=== PATIENT | female | born 2000 | race Caucasian/White ===

== ENCOUNTER 2024-04-30 17:27 | Inpatient (IN) | payer OTHER, SELFPAY ==
[2024-04-30 18:17] VITALS: BP 128/88; PULSE 92; RESP 18; TEMP 36.7; O2SAT 100; BMI 20.1
--- NOTE | 2024-04-30 18:22 | ED.GENADULT ---
HPI - General Adult General Chief complaint: General Medical Stated complaint: lump under chin Time Seen by Provider: 04/30/24 22:48 Source: patient, family, RN notes reviewed and old records reviewed Mode of arrival: ambulatory Limitations: no limitations History of Present Illness ED Provider: Suly RUBALCAVA narrative: 23-year-old female presents for evaluation of a swollen gland under her chin She 1st noticed his symptoms about 3 days ago. She denies any respiratory symptoms including fevers, chills, cough, runny nose. She denies any sore throat or painful swallowing. She has no known history of thyroid issues but does have anxiety and is concerned about her thyroid She reports very mild discomfort to the area stating ?I can feel it is enlarged but it does not hurt. ? Related Data Allergies Allergy/AdvReac Type Severity Reaction Status Date / Time No Known Allergies Allergy Verified 04/30/24 18:20 Review of Systems Constitutional: Constitutional: Reports chills, Denies fever(s) and Reports malaise Eyes: Eyes: Denies blurry vision ENT: Denies sore throat Cardiovascular: Cardiovascular: Denies chest pain and Denies dyspnea Respiratory: Respiratory: Denies cough and Denies dyspnea Gastrointestinal: Gastrointestinal: Denies abdominal pain, Denies nausea and Denies vomiting Musculoskeletal: Musculoskeletal: Denies back pain Hematologic/Lymphatic: Hematologic/Lymphatic: Reports lymphadenopathy PMFSH Social History Social History Smoked in Last 30 Days: Yes Use of substances other than those prescribed or required for medical reasons: No Advance Directives: No Advance Directives Information Provided: Yes Patient : No Physical Exam ED Vital Signs: Vital Signs - 24 hr 04/30/24 18:17 05/01/24 00:07 Temperature 98.0 F 98.7 F Pulse Rate 92 107 H Respiratory Rate 18 18 Blood Pressure 128/88 126/82 Pulse Oximetry 100 99 Oxygen Delivery Method Room Air Room Air BMI result Body Mass Index 20.1 Const General: healthy appearing, comfortable, no acute distress, alert and awake Nutritional Appearance: well nourished Orientation/consciousness: patient oriented x3 HENMT Head: Yes normocephalic and Yes atraumatic Eyes Eyelids: Yes eyelids normal Conjunctivae: conjunctivae normal Sclerae: sclerae normal Corneas: corneas normal Pupils: Equal, round and reactive pupils present EOM: EOMs intact bilaterally Neck Other: Positive right-sided submandibular lymphadenopathy Neck: Yes full ROM, No no lymphadenopathy and Yes no meningeal signs Thyroid: Thyroid normal Resp Effort & Inspection: normal respiratory effort, able to speak in complete sentences, no audible wheezes and not labored Auscultation: clear to auscultation bilaterally Cardio Rate: regular rate Rhythm: regular rhythm Skin General skin exam: elasticity normal Neuro General: patient oriented x3 and no meningeal signs Cranial nerves: Yes Equal, round and reactive pupils present and Yes Bilaterally intact EOM present Cognition (Neuro): normal cognition Extrem Other: Moving all extremities well without any obvious deformities Course Course Course Narrative: RME: 22-year-old female presents to ED for tender small lump on right side of neck. Patient has very small right cervical lymphadenopathy. Oral exam positive for bilateral exudates. Patient well-appearing. SARs strep mono ordered. Reevaluation(s) Reevaluation #1: I was side blood by the patient's father who reports that the patient is interested in having a ?psych eval. I asked the patient why she feels as if she needs a psychiatric evaluation. She reports ?I do not feel like I am in touch with reality, nothing feels real. She endorses depression with SI but no plan for SI. She reports a previous inpatient psychiatric admission about 2 years ago. The patient is medically cleared for care team evaluation at this time. Time: 00:10 Medications Administered Discontinued Medications Generic Name Dose Route Start Last Admin Trade Name Freq PRN Reason Stop Dose Admin Nicotine 21 mg 05/01/24 00:40 05/01/24 00:44 Nicotine 21 Mg Patch.Td24 TRANSDERMA 05/01/24 00:41 21 mg ONCE ONE Administration Medical Decision Making Medical Decision Making [facility] Narrative: 23-year-old female presents for evaluation of a swollen glands. She denies any sore throat. She endorses chills but no fevers. Denies any cough, respiratory symptoms. Her labs are unremarkable, she is negative for influenza, COVID-19, RSV, strep pharyngitis, mononucleosis. Plan to add a thyroid testing as the patient is very concerned about her thyroid. She has no anterior neck edema outside of the palpable swollen gland that is nonmobile. This is nonspecific, possibly viral in origin Differential Diagnosis Differential Diagnoses: The differential diagnosis associated with the presentation includes Pharyngitis Viral syndrome Lymphadenopathy Upper respiratory infection Mononucleosis Strep pharyngitis Admission/Observation Consideration of admission/observation: Escalation of care including admission/observation considered Lab Data MDM Lab Attestation statement: I reviewed the patient's lab results. No leukocytosis or anemia. Normal platelet count. No electrolyte abnormality 04/30/24 19:14 04/30/24 19:14 Labs: Lab Results 04/30/24 05/01/24 Range/Units 19:14 06:44 WBC 8.5 (4.8-10.8) X10*3/uL RBC 5.09 (4.20-5.50) X10*6/uL Hgb 15.7 (12.0-16.0) g/dl Hct 43.5 (37.0-47.0) % MCV 85.5 (80.0-98.0) fL MCH 30.8 (27.0-33.0) pg MCHC 36.1 H (31.0-35.0) g/dl RDW 12.2 (11.0-16.0) % Plt Count 264 (160-400) X10*3/uL MPV 9.1 L (9.4-12.3) fL Immature Gran % (Auto) 0.2 (0.0-0.4) % Neut % (Auto) 53.6 (45-73) % Lymph % (Auto) 28.0 (20-40) % [place] % (Auto) 11.1 H (2-11) % Eos % (Auto) 6.5 H (0-4) % Baso % (Auto) 0.6 (0-2) % Lymph # (Auto) 2.4 (1.2-4.9) X10*3/uL [place] # (Auto) 0.9 (0.1-1.2) X10*3/uL Eos # (Auto) 0.6 H (0.0-0.4) X10*3/uL Baso # (Auto) 0.1 (0.0-0.2) X10*3/uL Abs Immat Gran (auto) 0.02 (0.00-0.03) X10*3/uL Absolute Neuts (auto) 4.6 (2.0-8.3) x10*3/uL Absolute Nucleated RBC 0.000 (0.0-0.012) X10*3/uL Nucleated RBC % (auto) 0.0 (0.0-0.2) /100WBC Sodium 141 (135-145) mmol/L Potassium 3.9 (3.3-5.1) mmol/L Chloride 108 (96-108) mmol/L Carbon Dioxide 22 (22-29) mmol/L Anion Gap 15 (12-20) BUN 15 (9-16) mg/dL Creatinine 0.74 (0.5-1.4) mg/dL Estim Creat Clear Calc 108.8 Estimated GFR > 60 Random Glucose 86 (60-115) mg/dL Calcium 9.7 (8.4-10.2) mg/dL Total Bilirubin 1.7 H (0.0-1.0) mg/dL AST 20 (5-31) U/L ALT 16 (0-31) U/L Alkaline Phosphatase 40 (39-117) U/L Total Protein 7.7 (6.5-8.0) g/dL Albumin 4.7 (3.5-5.0) g/dL TSH 5.20 H (0.32-4.0) uIU/mL Free T4 1.11 (0.71-1.85) ng/dL Beta HCG, Quant < 2 mIU/mL Salicylates < 5.0 L (15-30) mg/dL Urine Opiates Screen Not Detected (Not Detect) Ur Buprenorphine Scrn Not Detected (Not Detect) ng/mL Ur Oxycodone Screen Not Detected (Not Detect) ng/mL Urine Methadone Screen Not Detected (Not Detect) ng/mL Urine Fentanyl Screen Not Detected (Not Detect) Ur Barbiturates Screen Not Detected (Not Detect) Ur Phencyclidine Scrn Not Detected (Not Detect) Ur Amphetamines Screen Not Detected (Not Detect) U Benzodiazepines Scrn Not Detected (Not Detect) Urine Cocaine Screen Not Detected (Not Detect) U Marijuana (THC) Screen POSITIVE H (Not Detect) Ethyl Alcohol < 10 mg/dL Monoscreen Negative (Negative) Influenza Type A (PCR) NEGATIVE (Negative) Influenza Type B (PCR) NEGATIVE (Negative) RSV RNA Qual (PCR) NEGATIVE (Negative) SARS-CoV-2 RNA (RT-PCR) NEGATIVE (Negative) S. pyogenes GrpA [place] Negative (Negative) Discharge Plan Discharge Clinical Impression: Lymphadenopathy, submandibular, Depression with suicidal ideation Patient Disposition: Still a Patient Instructions: Lymphadenopathy (ED), Suicide Prevention (ED) Print Language: Upper Sorbian
[2024-04-30 19:20] LABS: MANUAL DIFF FLAG NO
[2024-04-30 19:22] LABS: Basophils Absolute Auto 0.1 X10*3/uL (0.0-0.2); Basophils Percent Auto 0.6 % (0-2); Eosinophils Absolute Auto 0.6 X10*3/uL (0.0-0.4); Eosinophils Percent Auto 6.5 % (0-4); Hematocrit 43.5 % (37.0-47.0); Hemoglobin 15.7 g/dl (12.0-16.0); Imm Gran Abs Auto 0.02 X10*3/uL (0.00-0.03); Imm Gran Pct Auto 0.2 % (0.0-0.4); Lymphocytes Absolute Auto 2.4 X10*3/uL (1.2-4.9); Mean Corpuscular HGB Conc 36.1 g/dl (31.0-35.0); Mean Corpuscular Hemoglobin 30.8 pg (27.0-33.0); Mean Corpuscular Volume 85.5 fL (80.0-98.0); Mean Platelet Volume 9.1 fL (9.4-12.3); Monocytes Absolute Auto 0.9 X10*3/uL (0.1-1.2); Monocytes Percent Auto 11.1 % (2-11); Neutrophils Absolute Auto 4.6 x10*3/uL (2.0-8.3); Neutrophils Percent Auto 53.6 % (45-73); Platelet Count 264 X10*3/uL (160-400); Red Blood Count 5.09 X10*6/uL (4.20-5.50); Red Cell Distribution Width 12.2 % (11.0-16.0); White Blood Count 8.5 X10*3/uL (4.8-10.8)
[2024-04-30 19:27] LABS: IDNOW Serial# 58CA691E; Strep A Nucleic Acid Negative (Negative)
[2024-04-30 19:35] LABS: Monotest Negative (Negative)
[2024-04-30 19:42] LABS: Alanine Aminotransferase 16 U/L (0-31); Albumin Level 4.7 g/dL (3.5-5.0); Alkaline Phosphatase 40 U/L (39-117); Anion Gap 15 (12-20); Aspartate Amino Transferase 20 U/L (5-31); Bilirubin Total 1.7 mg/dL (0.0-1.0); Blood Urea Nitrogen 15 mg/dL (9-16); Calcium 9.7 mg/dL (8.4-10.2); Carbon Dioxide 22 mmol/L (22-29); Chloride 108 mmol/L (96-108); Creatinine Clr Calc Pharmacy 108.8; Estimated Glomerular Filt Rate > 60; Glucose Random 86 mg/dL (60-115); Potassium 3.9 mmol/L (3.3-5.1); Sodium 141 mmol/L (135-145); Total Protein 7.7 g/dL (6.5-8.0)
[2024-04-30 19:44] LABS: HCG Quantitative < 2 mIU/mL
[2024-04-30 19:56] LABS: Influenza A PCR NEGATIVE (Negative); Influenza B PCR NEGATIVE (Negative); Resp Syncy Virus RNA Qual PCR NEGATIVE (Negative); SARS COV2 PCR INHOUSE NEGATIVE (Negative)
[2024-05-01 00:07] VITALS: BP 126/82; PULSE 107; RESP 18; TEMP 37.1; O2SAT 99
[2024-05-01 00:31] LABS: Ethanol < 10 mg/dL
[2024-05-01 00:42] LABS: Salicylate < 5.0 mg/dL (15-30)
[2024-05-01] MEDS: Nicotine 21 MG PATCH.TD24 TRANSDERMA (00:44)
[2024-05-01 00:51] LABS: Free T4 (Free Thyroxine) 1.11 ng/dL (0.71-1.85)
[2024-05-01 07:04] LABS: Amphetamine Screen Urine Not Detected (Not Detect); Barbiturates, Urine Not Detected (Not Detect); Benzodiazepines Screen Urine Not Detected (Not Detect); Buprenorphine Scr Not Detected (Not Detect); Cannabinoid Screen Urine POSITIVE (Not Detect); Cocaine Screen Urine Not Detected (Not Detect); Fentanyl, urine Not Detected (Not Detect); Methadone Screen, Urine Not Detected (Not Detect); Opiate Screen Urine Not Detected (Not Detect); Oxycodone Screen Urine Not Detected (Not Detect); Phencyclidine Screen Urine Not Detected (Not Detect)
--- NOTE | 2024-05-01 08:02 | PC.NURSE ---
Assumed care of patient at 0645, patient appears to be in no apparent distress this am, calm and cooperative, offering no complaints to this RN. Continue plan of care for CARE team eval this am
--- NOTE | 2024-05-01 11:39 | MHC.CARE ---
Pt meets the criteria for IPLOC secondary to SI with a plan to shoot herself. She has no intent and does not have access to firearms. Provider in agreement. Pt on Section 12a.
[2024-05-01 14:00] VITALS: BP 108/77; PULSE 89; RESP 16; TEMP 37.2; O2SAT 99
--- NOTE | 2024-05-01 15:54 | PHA.MEDREC ---
Addendum entered by Elida Killian RPh 05/01/24 15:58: reviewed by [facility]. Original Note: Pharmacy Consult ? Medication Reconciliation Pharmacy has completed the medication reconciliation. Spoke with patients nurse in pod to see if she is taking anything since looking in claims the patient has not filled anything since 01/03 for 90 days. The patients nurse states she spoke to the patient and she confirmed She said she hasn't taken any medications 'in quite a long time' .
--- NOTE | 2024-05-01 18:42 | PC.NURSE ---
Patient appears to be sleeping, respirations even and unlabored, no apparent distress noted
[2024-05-01 21:51] VITALS: BP 116/85; PULSE 110; RESP 20; TEMP 36.4; O2SAT 97
[2024-05-02 05:34] VITALS: BP 137/92; PULSE 93; RESP 16; TEMP 36.8; O2SAT 100
--- NOTE | 2024-05-02 06:46 | PC.NURSE ---
Patient slept through the night, no distress observed/reported, 15 minutes safety check, no behavior and safety concerns, currently not on any medication at this time, disposition per care team is section 12 inpatient bed search, VSS, will continue to monitor
--- NOTE | 2024-05-02 07:14 | PC.NURSE ---
Assumed care of patient at 0645, patient appears to be in no apparent distress this am, calm and cooperative, up in bed eating breakfast at this time. Continue plan of care for inpatient bedsearch
[2024-05-02 19:08] VITALS: BP 136/89; PULSE 107; RESP 16; TEMP 36.4; O2SAT 98
[2024-05-02 19:09] VITALS: BMI 20.5
--- NOTE | 2024-05-02 19:24 | PC.NURSE ---
Pt transferred from [facility] Pod to M3 at 1847 on a CV for treatment of depression. Skin check complete with AMIRA Malone Skin intact. Vitals: 136/89 107 97.5 98%.
[2024-05-02 20:00] LABS: Alanine Aminotransferase 14 U/L (0-31); Albumin Level 4.2 g/dL (3.5-5.0); Alkaline Phosphatase 43 U/L (39-117); Anion Gap 10 (12-20); Aspartate Amino Transferase 17 U/L (5-31); Blood Urea Nitrogen 15 mg/dL (9-16); Calcium 9.2 mg/dL (8.4-10.2); Carbon Dioxide 27 mmol/L (22-29); Chloride 107 mmol/L (96-108); Creatinine Clr Calc Pharmacy 102.4; Estimated Glomerular Filt Rate > 60; Glucose Random 91 mg/dL (60-115); Potassium 3.8 mmol/L (3.3-5.1); Sodium 140 mmol/L (135-145); Total Protein 6.9 g/dL (6.5-8.0)
--- NOTE | 2024-05-02 23:45 | PC.ADMIT ---
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 ОЛЬГА WAS COOPERATIVE/ WITH LINEAR THOUGHTS AND ORGANIZED DURING ADMISSION PROCESS, [facility] CONTACT EXPRESSING DEPRESSION SHE BECAME TEARFUL RECOUNTING CURRENT LIFE STRESSOR WHICH SHE DID NOT DISCLOSE, POSITIVE THOUGHTS OF SI, WHICH IS INCREASED AT HOME, STATES THOUGHTS ARE DIMINISHED HERE, NO PLAN, AND IS COMFORTABLE WITH CONTACTING STAFF IF THOUGHTS CHANGE. DENIES AVH. HER DISCHARGE GOAL: GET ON MEDS THAT HELP, CONNECT WITH OPLOC PROVIDERS AND FEEL BETTER. ОЛЬГА WAS GIVEN TOUR OF UNIT, OFFERED NOURISHMENT, NO SCHEDULED HS MEDS AND SHE DECLINED PRN'. NO FALL HX, GAIT STEADY. LEGAL STATUS CV, PLACED ON 15 MIN UNIT SAFETY OBSERVATION.
[2024-05-03 08:00] VITALS: BP 137/82; PULSE 79; RESP 16; TEMP 37; O2SAT 99
[2024-05-03] MEDS: Nicotine 21 MG PATCH.TD24 TRANSDERMA (08:50)
[2024-05-03] MEDS: Flu Vacc TS2024-25(6mos up)/PF 0.5 ML SYRINGE IM (09:03)
--- NOTE | 2024-05-03 09:16 | HO.PSYADMNOT ---
HPI Date of Service: 05/03/24 Chief Complaint: crisis Sources of Information: patient interviewed, chart reviewed and crisis/core team assessment reviewed HPI Subjective Notes: Wilson Warning and Conditional Voluntary Narrative: Patient is a 23-year-old female with history of bipolar d/o and PTSD who self presented to ED requesting psychiatric evaluation due to suicidal ideation secondary to increased depression. Per crisis report, patient feels like she is not in touch with reality. She endorsed SI with increased depression with plan to shoot herself (does not have access to firearms); patient stated, fantasized about suicide all the everyday . denies HI/VH/AH. Patient reports she has never been medicated properly. Patient reports she was on inpatient psychiatric unit 2 years ago at [facility]. Reports poor sleep. Patient does have outpatient therapist but does not have prescriber and reports she has not taken medications in many years. Utox positive for cannabis. During admission assessment, patient presents alert and oriented x3. Calm and cooperative. Patient reports feeling depressed; patient stated, I have been unmedicated my whole life. I need help being a normal person. I was diagnosed with bipolar disorder. I'm crying all the time and angry all the time. I think about suicide since I was a kid but, I was worried if I told anyone that they would lock me up forever. I'm not a danger to myself; it's a constant racing thought. I would not actually do it . denies HI/VH/AH. denies hx of SA/SIB. She reports poor sleep and nightmares. Discussed starting on lithium and prazosin;risks/benefits reviewed; pt agreed to trial. Medical Evaluation Reviewed: Yes [facility] Family History: Mother: bipolar d/o Social History: Lives with adopted parents, 2 siblings (17 & 25 y/o), single. No kids. Unemployed. High school graduate. Substance History: Patient reports smoking marijuana daily. Denies any other substance use. Trauma History: yes Diagnostics Vital Signs (24Hr): Vital Signs - 24 hr 05/02/24 19:08 05/03/24 08:00 Temperature 97.5 F 98.6 F Pulse Rate 107 H 79 Respiratory Rate 16 16 Blood Pressure 136/89 137/82 Pulse Oximetry 98 99 Oxygen Delivery Method Room Air Room Air BMI result Body Mass Index 20.5 Labs 04/30/24 19:14 05/02/24 19:38 Labs: Laboratory Results - last 48 hr 05/02/24 19:38 Sodium 140 Potassium 3.8 Chloride 107 Carbon Dioxide 27 Anion Gap 10 L BUN 15 Creatinine 0.80 Estim Creat Clear Calc 102.4 Estimated GFR > 60 Random Glucose 91 Calcium 9.2 Total Bilirubin 1.0 AST 17 ALT 14 Alkaline Phosphatase 43 Total Protein 6.9 Albumin 4.2 Meds/Allergies Meds Home Medications ?Medication ?Instructions ?Recorded ?Confirmed ?Type No Known Home Meds 05/01/24 05/01/24 History Allergies Allergies Allergy/AdvReac Type Severity Reaction Status Date / Time No Known Allergies Allergy Verified 04/30/24 18:20 Mental Status Exam Mental Status Exam Narrative: Pt is alert and oriented; behavior is cooperative; dressed in casual attire; mood is described as depressed ; eye contact appropriate; Speech is normal rate, volume and not pressured; thought process is organized and goal directed; Thought content is on tx; otherwise pertinent to relevant topics and without any delusional content, paranoid ideations or grandiosity; denies HI/VH/AH. Pt reports suicidal ideation with no plan. Assessment & Plan Assessment & Plan (1) Bipolar 1 disorder, depressed: Status: Acute Code(s): F31.9 - Bipolar disorder, unspecified (2) PTSD (post-traumatic stress disorder): Status: Acute Code(s): F43.10 - Post-traumatic stress disorder, unspecified Plan Patient is a 23-year-old female with history of bipolar d/o and PTSD who self presented to ED requesting psychiatric evaluation due to suicidal ideation secondary to increased depression. Plan: CV 15 minute safety checks obtain collateral Start: [facility] [place] [facility] 300mg PO bedtime Prazosin 1mg PO bedtime encourage groups referral to outpatient psychiatric prescriber referral to [facility] discharge planning Patient educated on: diagnosis and medication risk/benefits Reason for continued inpatient stay Substantial Risk for: harm to self and med/psych decompensation Statement Statement: I have reviewed the history and physical and performed a pertinent examination on my patient. No changes have occurred unless specified. If the History and Physical was not performed prior to admission, the Hospitalist's service will be consulted for completing the admission physical. Time Spent With Patient Time: Total time managing care of this patient today _60___ minutes.
[2024-05-03 20:00] VITALS: BP 120/86; PULSE 95; RESP 16; TEMP 37.2; O2SAT 99
[2024-05-03] MEDS: traZODone HCL 50 MG TABLET PO (20:38)
[2024-05-03] MEDS: Lithium Carbonate ER 300 MG TABLET.ER PO (20:38)
[2024-05-03] MEDS: Prazosin HCL 1 MG CAPSULE PO (20:38)
[2024-05-04 07:00] VITALS: BMI 21.1
[2024-05-04 08:00] VITALS: BP 125/83; PULSE 83; RESP 16; TEMP 36.7; O2SAT 99
[2024-05-04 08:31] LABS: Cholesterol 128 mg/dL (<200); HDL Cholesterol 54 mg/dL (>40); LDL Cholesterol Calculated 56 mg/dL (<100); Triglycerides 93 mg/dL (<150)
[2024-05-04] MEDS: Nicotine 21 MG PATCH.TD24 TRANSDERMA (09:11)
[2024-05-04] MEDS: Milk of Magnesia 30 ML ORAL.SUSP PO (09:14)
--- NOTE | 2024-05-04 09:49 | HO.PSYCHPN ---
Subjective Subjective Date of Service: 05/04/24 Reason For Visit: crisis Subjective Notes: Conditional Voluntary Interim History: Active on unit, social with peers. attending groups. Patient reports she feels her anxiety and depression are a little better ; pt stated, I think I feel a little better because I know I'm getting the help I need. I haven't had thoughts of suicide since I'm getting treatment but I know if I was to go back to where I was then I would . Patient reports feeling labile throughout the day. denies any side effects from starting lithium. Reports she did not have nightmares last night after taking Prazosin. Continue current tx plan. Medication Compliance: Yes Side effects from medications: No Attending Groups: Yes Review of Systems Constitutional: Reports as per HPI Eyes: Reports as per HPI Reports as per HPI Cardiovascular: Reports as per HPI Respiratory: Reports as per HPI Gastrointestinal: Reports as per HPI Musculoskeletal: Reports as per HPI Skin/Breast: Reports as per HPI Reports as per HPI Psychiatric: Reports as per HPI Endocrine: Reports as per HPI Hematologic/Lymphatic: Reports as per HPI Allergic/Immunologic: Reports as per HPI Mental Status Exam Mental Status Exam Narrative: Pt is alert and oriented; behavior is cooperative; dressed in casual attire; mood is described as depressed ; eye contact appropriate; Speech is normal rate, volume and not pressured; thought process is organized and goal directed; Thought content is on tx; otherwise pertinent to relevant topics and without any delusional content, paranoid ideations or grandiosity; denies HI/VH/AH. Pt reports suicidal ideation with no plan. Diagnostics Vital Signs (24Hr): Vital Signs - 24 hr 05/03/24 20:00 05/04/24 08:00 Temperature 98.9 F 98.1 F Pulse Rate 95 83 Respiratory Rate 16 16 Blood Pressure 120/86 125/83 Pulse Oximetry 99 99 Oxygen Delivery Method Room Air Room Air BMI result Body Mass Index 20.5 Labs 04/30/24 19:14 05/02/24 19:38 Labs: Laboratory Results - last 48 hr 05/02/24 05/04/24 19:38 07:51 Sodium 140 Potassium 3.8 Chloride 107 Carbon Dioxide 27 Anion Gap 10 L BUN 15 Creatinine 0.80 Estim Creat Clear Calc 102.4 Estimated GFR > 60 Random Glucose 91 Calcium 9.2 Total Bilirubin 1.0 AST 17 ALT 14 Alkaline Phosphatase 43 Total Protein 6.9 Albumin 4.2 Triglycerides 93 Cholesterol 128 LDL Cholesterol, Calc 56 HDL Cholesterol 54 Medications Medications Current Medications Acetaminophen (Acetaminophen 325 Mg Tablet) 650 mg PO Q6H PRN PRN Reason: Headache/Pain Mild Scale (1-3) Al Hydroxide/Mg Hydroxide (Magnesium Hydrox/Alum Hydrox 30 Ml Oral.Susp) 30 ml PO Q6H PRN PRN Reason: Heartburn/Nausea Hydroxyzine HCl (Hydroxyzine Hcl 25 Mg Tablet) 25 mg PO Q6H PRN PRN Reason: Anxiety Ibuprofen (Ibuprofen 400 Mg Tablet) 400 mg PO TID PRN PRN Reason: Pain, Moderate(Pain Scale 4-6) [place] Carbonate ([place] Carbonate Er 300 Mg Tablet.Er) 300 mg PO BEDTIME KARISHMA Last Admin: 05/03/24 20:38 Dose: 300 mg Magnesium Hydroxide (Milk Of Magnesia 30 Ml Oral.Susp) 30 ml PO DAILY PRN PRN Reason: Constipation Last Admin: 05/04/24 09:14 Dose: 30 ml Nicotine (Nicotine 21 Mg Patch.Td24) 21 mg TRANSDERMA DAILY KARISHMA Last Admin: 05/04/24 09:11 Dose: 21 mg Nicotine Polacrilex (Nicotine Polacrilex 2 Mg Gum) 4 mg BUCCAL Q2H PRN PRN Reason: Nicotine Cravings Olanzapine (Olanzapine 5 Mg Tablet) 5 mg PO Q4H PRN PRN Reason: agitation Prazosin HCl (Prazosin Hcl 1 Mg Capsule) 1 mg PO BEDTIME KARISHMA; Protocol Last Admin: 05/03/24 20:38 Dose: 1 mg Trazodone HCl (Trazodone Hcl 50 Mg Tablet) 50 mg PO BEDTIME MRX1 PRN PRN Reason: Insomnia Last Admin: 05/03/24 20:38 Dose: 50 mg Allergies Allergies Allergy/AdvReac Type Severity Reaction Status Date / Time No Known Allergies Allergy Verified 04/30/24 18:20 Assessment & Plan Assessment & Plan (1) Bipolar 1 disorder, depressed: Status: Acute Code(s): F31.9 - Bipolar disorder, unspecified (2) PTSD (post-traumatic stress disorder): Status: Acute Code(s): F43.10 - Post-traumatic stress disorder, unspecified Plan Patient is a 23-year-old female with history of bipolar d/o and PTSD who self presented to ED requesting psychiatric evaluation due to suicidal ideation secondary to increased depression. Plan: CV 15 minute safety checks obtain collateral Start: [place] [facility] 300mg PO bedtime Prazosin 1mg PO bedtime encourage groups referral to outpatient psychiatric prescriber referral to [facility] discharge planning 05/04: Active on unit, social with peers. attending groups. Patient reports she feels her anxiety and depression are a little better ; pt stated, I think I feel a little better because I know I'm getting the help I need. I haven't had thoughts of suicide since I'm getting treatment but I know if I was to go back to where I was then I would . Patient reports feeling labile throughout the day. denies any side effects from starting lithium. Reports she did not have nightmares last night after taking Prazosin. Continue current tx plan. Patient educated on: diagnosis, medication risk/benefits and therapeutic strategies Reason for continued inpatient stay Substantial Risk for: harm to self and med/psych decompensation Time Spent With Patient Time: Total time managing care of this patient today _20___ minutes.
[2024-05-04 20:00] VITALS: BP 125/79; PULSE 93; RESP 16; TEMP 36.9; O2SAT 99
[2024-05-04] MEDS: Prazosin HCL 1 MG CAPSULE PO (20:16)
[2024-05-04] MEDS: traZODone HCL 50 MG TABLET PO (20:16)
[2024-05-04] MEDS: Lithium Carbonate ER 300 MG TABLET.ER PO (20:16)
[2024-05-05 09:14] VITALS: BP 143/86; PULSE 102; RESP 16; TEMP 37.2; O2SAT 98
--- NOTE | 2024-05-05 09:16 | P.PNPSI_ITS ---
Subjective Subjective Date of Service: 05/05/24 Reason For Visit: crisis Subjective Notes: Conditional Voluntary Interim History: Tearful during 1:1. Patient reports feeling anxious and depression today; pt stated, I would like to go to college and get a job but when I think about it I get overwhelmed. I can't afford going to college . attending groups. increase lithium to 300mg PO BID Medication Compliance: Yes Side effects from medications: No Attending Groups: Yes Review of Systems Constitutional: Reports as per HPI Eyes: Reports as per HPI Reports as per HPI Cardiovascular: Reports as per HPI Respiratory: Reports as per HPI Gastrointestinal: Reports as per HPI Musculoskeletal: Reports as per HPI Skin/Breast: Reports as per HPI Reports as per HPI Psychiatric: Reports as per HPI Endocrine: Reports as per HPI Hematologic/Lymphatic: Reports as per HPI Allergic/Immunologic: Reports as per HPI Mental Status Exam Mental Status Exam Narrative: Pt is alert and oriented; behavior is cooperative, tearful; dressed in casual attire; mood is described as depressed ; eye contact appropriate; Speech is normal rate, volume and not pressured; thought process is organized and goal directed; Thought content is on tx; otherwise pertinent to relevant topics and without any delusional content, paranoid ideations or grandiosity; denies SI/HI/VH/AH. Diagnostics Vital Signs (24Hr): Vital Signs - 24 hr 05/04/24 20:00 05/05/24 09:14 Temperature 98.4 F 98.9 F Pulse Rate 93 102 H Respiratory Rate 16 16 Blood Pressure 125/79 143/86 H Pulse Oximetry 99 98 Oxygen Delivery Method Room Air Room Air BMI result Body Mass Index 21.1 Labs 04/30/24 19:14 05/02/24 19:38 Labs: Laboratory Results - last 48 hr 05/04/24 07:51 Triglycerides 93 Cholesterol 128 LDL Cholesterol, Calc 56 HDL Cholesterol 54 Medications Medications Current Medications Acetaminophen (Acetaminophen 325 Mg Tablet) 650 mg PO Q6H PRN PRN Reason: Headache/Pain Mild Scale (1-3) Al Hydroxide/Mg Hydroxide (Magnesium Hydrox/Alum Hydrox 30 Ml Oral.Susp) 30 ml PO Q6H PRN PRN Reason: Heartburn/Nausea Hydroxyzine HCl (Hydroxyzine Hcl 25 Mg Tablet) 25 mg PO Q6H PRN PRN Reason: Anxiety Ibuprofen (Ibuprofen 400 Mg Tablet) 400 mg PO TID PRN PRN Reason: Pain, Moderate(Pain Scale 4-6) [place] Carbonate ([place] Carbonate Er 300 Mg Tablet.Er) 300 mg PO BEDTIME [facility] Last Admin: 05/04/24 20:16 Dose: 300 mg Magnesium Hydroxide (Milk Of Magnesia 30 Ml Oral.Susp) 30 ml PO DAILY PRN PRN Reason: Constipation Last Admin: 05/04/24 09:14 Dose: 30 ml Nicotine (Nicotine 21 Mg Patch.Td24) 21 mg TRANSDERMA DAILY [facility] Last Admin: 05/05/24 09:16 Dose: Not Given Nicotine Polacrilex (Nicotine Polacrilex 2 Mg Gum) 4 mg BUCCAL Q2H PRN PRN Reason: Nicotine Cravings Olanzapine (Olanzapine 5 Mg Tablet) 5 mg PO Q4H PRN PRN Reason: agitation Prazosin HCl (Prazosin Hcl 1 Mg Capsule) 1 mg PO BEDTIME [facility]; Protocol Last Admin: 05/04/24 20:16 Dose: 1 mg Trazodone HCl (Trazodone Hcl 50 Mg Tablet) 50 mg PO BEDTIME MRX1 PRN PRN Reason: Insomnia Last Admin: 05/04/24 20:16 Dose: 50 mg Allergies Allergies Allergy/AdvReac Type Severity Reaction Status Date / Time No Known Allergies Allergy Verified 04/30/24 18:20 Assessment & Plan Assessment & Plan (1) Bipolar 1 disorder, depressed: Status: Acute Code(s): F31.9 - Bipolar disorder, unspecified (2) PTSD (post-traumatic stress disorder): Status: Acute Code(s): F43.10 - Post-traumatic stress disorder, unspecified Plan Patient is a 23-year-old female with history of bipolar d/o and PTSD who self presented to ED requesting psychiatric evaluation due to suicidal ideation secondary to increased depression. Plan: CV 15 minute safety checks obtain collateral Start: [place] ER 300mg PO bedtime Prazosin 1mg PO bedtime encourage groups referral to outpatient psychiatric prescriber referral to [facility] discharge planning 05/04: Active on unit, social with peers. attending groups. Patient reports she feels her anxiety and depression are a little better ; pt stated, I think I feel a little better because I know I'm getting the help I need. I haven't had thoughts of suicide since I'm getting treatment but I know if I was to go back to where I was then I would . Patient reports feeling labile throughout the day. denies any side effects from starting lithium. Reports she did not have nightmares last night after taking Prazosin. Continue current tx plan. 05/05: Tearful during 1:1. Patient reports feeling anxious and depression today; pt stated, I would like to go to college and get a job but when I think about it I get overwhelmed. I can't afford going to college . attending groups. increase lithium to 300mg PO BID Patient educated on: diagnosis, medication risk/benefits and therapeutic strategies Reason for continued inpatient stay Substantial Risk for: med/psych decompensation Time Spent With Patient Time: Total time managing care of this patient today _20___ minutes.
[2024-05-05] MEDS: Lithium Carbonate ER 300 MG TABLET.ER PO ×2 (14:32→22:08)
[2024-05-05 20:00] VITALS: BP 121/84; PULSE 75; RESP 16; TEMP 36.9; O2SAT 99
[2024-05-05] MEDS: traZODone HCL 50 MG TABLET PO (22:08)
[2024-05-05] MEDS: Prazosin HCL 1 MG CAPSULE PO (22:09)
[2024-05-06] MEDS: Lithium Carbonate ER 300 MG TABLET.ER PO ×2 (08:52→22:35)
--- NOTE | 2024-05-06 16:08 | P.PNPSI_ITS ---
Subjective Subjective Date of Service: 05/06/24 Reason For Visit: crisis Subjective Notes: Conditional Voluntary Interim History: Pt reports she is less depressed in that she is not suicidal. She is concern that few doses of lithium have not resolved depression and anxiety- pt educated on time it takes to see therapeutic benefit. She denies SI/HI. She has been mostly in her room, but does come out and socializes with peers. She does appear very anxious and shy. No behavioral concerns. No overt psychosis or delusions. Review of Systems Constitutional: Reports as per HPI, Reports chills, Denies fever(s) and Reports malaise Eyes: Reports as per HPI and Denies blurry vision Reports as per HPI and Denies sore throat Cardiovascular: Reports as per HPI, Denies chest pain and Denies dyspnea Respiratory: Reports as per HPI, Denies cough and Denies dyspnea Gastrointestinal: Reports as per HPI, Denies abdominal pain, Denies nausea and Denies vomiting Musculoskeletal: Reports as per HPI and Denies back pain Skin/Breast: Reports as per HPI Reports as per HPI Psychiatric: Reports as per HPI Endocrine: Reports as per HPI Hematologic/Lymphatic: Reports as per HPI and Reports lymphadenopathy Allergic/Immunologic: Reports as per HPI Mental Status Exam Mental Status Exam Narrative: Pt is alert and oriented; behavior is cooperative, tearful; dressed in casual attire; mood is described as depressed ; eye contact appropriate; Speech is normal rate, volume and not pressured; thought process is organized and goal directed; Thought content is on tx; otherwise pertinent to relevant topics and without any delusional content, paranoid ideations or grandiosity; denies SI/HI/VH/AH. Diagnostics Vital Signs (24Hr): Vital Signs - 24 hr 05/05/24 20:00 Temperature 98.4 F Pulse Rate 75 Respiratory Rate 16 Blood Pressure 121/84 Pulse Oximetry 99 Oxygen Delivery Method Room Air BMI result Body Mass Index 21.1 Labs 04/30/24 19:14 05/02/24 19:38 Medications Medications Current Medications Acetaminophen (Acetaminophen 325 Mg Tablet) 650 mg PO Q6H PRN PRN Reason: Headache/Pain Mild Scale (1-3) Al Hydroxide/Mg Hydroxide (Magnesium Hydrox/Alum Hydrox 30 Ml Oral.Susp) 30 ml PO Q6H PRN PRN Reason: Heartburn/Nausea Hydroxyzine HCl (Hydroxyzine Hcl 25 Mg Tablet) 25 mg PO Q6H PRN PRN Reason: Anxiety Ibuprofen (Ibuprofen 400 Mg Tablet) 400 mg PO TID PRN PRN Reason: Pain, Moderate(Pain Scale 4-6) [place] Carbonate ([place] Carbonate Er 300 Mg Tablet.Er) 300 mg PO BID [facility] Last Admin: 05/06/24 08:52 Dose: 300 mg Magnesium Hydroxide (Milk Of Magnesia 30 Ml Oral.Susp) 30 ml PO DAILY PRN PRN Reason: Constipation Last Admin: 05/04/24 09:14 Dose: 30 ml Nicotine (Nicotine 21 Mg Patch.Td24) 21 mg TRANSDERMA DAILY [facility] Last Admin: 05/06/24 08:53 Dose: Not Given Nicotine Polacrilex (Nicotine Polacrilex 2 Mg Gum) 4 mg BUCCAL Q2H PRN PRN Reason: Nicotine Cravings Olanzapine (Olanzapine 5 Mg Tablet) 5 mg PO Q4H PRN PRN Reason: agitation Prazosin HCl (Prazosin Hcl 1 Mg Capsule) 1 mg PO BEDTIME [facility]; Protocol Last Admin: 05/05/24 22:09 Dose: 1 mg Trazodone HCl (Trazodone Hcl 50 Mg Tablet) 50 mg PO BEDTIME MRX1 PRN PRN Reason: Insomnia Last Admin: 05/05/24 22:08 Dose: 50 mg Allergies Allergies Allergy/AdvReac Type Severity Reaction Status Date / Time No Known Allergies Allergy Verified 04/30/24 18:20 Assessment & Plan Assessment & Plan (1) Bipolar 1 disorder, depressed: Status: Acute Code(s): F31.9 - Bipolar disorder, unspecified (2) PTSD (post-traumatic stress disorder): Status: Acute Code(s): F43.10 - Post-traumatic stress disorder, unspecified Plan Patient is a 23-year-old female with history of bipolar d/o and PTSD who self presented to ED requesting psychiatric evaluation due to suicidal ideation secondary to increased depression. Plan: CV 15 minute safety checks obtain collateral Start: [place] ER 300mg PO bedtime Prazosin 1mg PO bedtime encourage groups referral to outpatient psychiatric prescriber referral to [facility] discharge planning 05/04: Active on unit, social with peers. attending groups. Patient reports she feels her anxiety and depression are a little better ; pt stated, I think I feel a little better because I know I'm getting the help I need. I haven't had thoughts of suicide since I'm getting treatment but I know if I was to go back to where I was then I would . Patient reports feeling labile throughout the day. denies any side effects from starting lithium. Reports she did not have nightmares last night after taking Prazosin. Continue current tx plan. 05/05: Tearful during 1:1. Patient reports feeling anxious and depression today; pt stated, I would like to go to college and get a job but when I think about it I get overwhelmed. I can't afford going to college . attending groups. increase lithium to 300mg PO BID 05/06 continue tx. Reason for continued inpatient stay Substantial Risk for: inability to function Time Spent With Patient Time: Total time managing care of this patient today ____ minutes.
[2024-05-06 20:00] VITALS: BP 118/65; PULSE 84; RESP 16; TEMP 36.8; O2SAT 97
[2024-05-06] MEDS: traZODone HCL 50 MG TABLET PO (22:35)
[2024-05-06 22:40] VITALS: BP 141/89
[2024-05-06] MEDS: Prazosin HCL 1 MG CAPSULE PO (22:40)
[2024-05-07 08:00] VITALS: BP 130/79; PULSE 80; RESP 16; TEMP 37.1; O2SAT 98
[2024-05-07] MEDS: Lithium Carbonate ER 300 MG TABLET.ER PO ×2 (09:21→21:20)
--- NOTE | 2024-05-07 10:24 | HO.PSYCHPN ---
Subjective Subjective Date of Service: 05/07/24 Reason For Visit: crisis Subjective Notes: Conditional Voluntary Interim History: Pt reports feeling better but wondering why medications are not as effective. No SI/HI. No VH/AH. Keeps to herself. Medication Compliance: Yes Review of Systems Constitutional: Reports as per HPI, Reports chills, Denies fever(s) and Reports malaise Eyes: Reports as per HPI and Denies blurry vision Reports as per HPI and Denies sore throat Cardiovascular: Reports as per HPI, Denies chest pain and Denies dyspnea Respiratory: Reports as per HPI, Denies cough and Denies dyspnea Gastrointestinal: Reports as per HPI, Denies abdominal pain, Denies nausea and Denies vomiting Musculoskeletal: Reports as per HPI and Denies back pain Skin/Breast: Reports as per HPI Reports as per HPI Psychiatric: Reports as per HPI Endocrine: Reports as per HPI Hematologic/Lymphatic: Reports as per HPI and Reports lymphadenopathy Allergic/Immunologic: Reports as per HPI Mental Status Exam Mental Status Exam Narrative: Pt is alert and oriented; behavior is cooperative, tearful; dressed in casual attire; mood is described as depressed ; eye contact appropriate; Speech is normal rate, volume and not pressured; thought process is organized and goal directed; Thought content is on tx; otherwise pertinent to relevant topics and without any delusional content, paranoid ideations or grandiosity; denies SI/HI/VH/AH. Diagnostics Vital Signs (24Hr): Vital Signs - 24 hr 05/06/24 20:00 05/06/24 22:40 05/07/24 08:00 Temperature 98.3 F 98.7 F Pulse Rate 84 80 Respiratory Rate 16 16 Blood Pressure 118/65 141/89 H 130/79 Pulse Oximetry 97 98 Oxygen Delivery Method Room Air Room Air BMI result Body Mass Index 21.1 Labs 04/30/24 19:14 05/02/24 19:38 Medications Medications Current Medications Acetaminophen (Acetaminophen 325 Mg Tablet) 650 mg PO Q6H PRN PRN Reason: Headache/Pain Mild Scale (1-3) Al Hydroxide/Mg Hydroxide (Magnesium Hydrox/Alum Hydrox 30 Ml Oral.Susp) 30 ml PO Q6H PRN PRN Reason: Heartburn/Nausea Bisacodyl (Bisacodyl 5 Mg Tablet.Dr) 10 mg PO BEDTIME PRN PRN Reason: Constipation Hydroxyzine HCl (Hydroxyzine Hcl 25 Mg Tablet) 25 mg PO Q6H PRN PRN Reason: Anxiety Ibuprofen (Ibuprofen 400 Mg Tablet) 400 mg PO TID PRN PRN Reason: Pain, Moderate(Pain Scale 4-6) [place] Carbonate ([place] Carbonate Er 300 Mg Tablet.Er) 300 mg PO BID [facility] Last Admin: 05/07/24 09:21 Dose: 300 mg Magnesium Hydroxide (Milk Of Magnesia 30 Ml Oral.Susp) 30 ml PO DAILY PRN PRN Reason: Constipation Last Admin: 05/04/24 09:14 Dose: 30 ml Nicotine (Nicotine 21 Mg Patch.Td24) 21 mg TRANSDERMA DAILY [facility] Last Admin: 05/07/24 09:22 Dose: Not Given Nicotine Polacrilex (Nicotine Polacrilex 2 Mg Gum) 4 mg BUCCAL Q2H PRN PRN Reason: Nicotine Cravings Olanzapine (Olanzapine 5 Mg Tablet) 5 mg PO Q4H PRN PRN Reason: agitation Polyethylene Glycol (Polyethylene Glycol 3350 17 Gm Powd.Pack) 17 gm PO DAILY PRN PRN Reason: Constipation Prazosin HCl (Prazosin Hcl 1 Mg Capsule) 1 mg PO BEDTIME [facility]; Protocol Last Admin: 05/06/24 22:40 Dose: 1 mg Trazodone HCl (Trazodone Hcl 50 Mg Tablet) 50 mg PO BEDTIME MRX1 PRN PRN Reason: Insomnia Last Admin: 05/06/24 22:35 Dose: 50 mg Allergies Allergies Allergy/AdvReac Type Severity Reaction Status Date / Time No Known Allergies Allergy Verified 04/30/24 18:20 Assessment & Plan Assessment & Plan (1) Bipolar 1 disorder, depressed: Status: Acute Code(s): F31.9 - Bipolar disorder, unspecified (2) PTSD (post-traumatic stress disorder): Status: Acute Code(s): F43.10 - Post-traumatic stress disorder, unspecified Plan Patient is a 23-year-old female with history of bipolar d/o and PTSD who self presented to ED requesting psychiatric evaluation due to suicidal ideation secondary to increased depression. Plan: CV 15 minute safety checks obtain collateral Start: [place] ER 300mg PO bedtime Prazosin 1mg PO bedtime encourage groups referral to outpatient psychiatric prescriber referral to [facility] discharge planning 05/04: Active on unit, social with peers. attending groups. Patient reports she feels her anxiety and depression are a little better ; pt stated, I think I feel a little better because I know I'm getting the help I need. I haven't had thoughts of suicide since I'm getting treatment but I know if I was to go back to where I was then I would . Patient reports feeling labile throughout the day. denies any side effects from starting lithium. Reports she did not have nightmares last night after taking Prazosin. Continue current tx plan. 05/05: Tearful during 1:1. Patient reports feeling anxious and depression today; pt stated, I would like to go to college and get a job but when I think about it I get overwhelmed. I can't afford going to college . attending groups. increase lithium to 300mg PO BID 05/06 continue tx 05/07 continue tx. Reason for continued inpatient stay Substantial Risk for: inability to function Time Spent With Patient Time: Total time managing care of this patient today ____ minutes.
[2024-05-07] MEDS: polyethylene glycoL 3350 17 GM POWD.PACK PO (12:07)
[2024-05-07 19:49] VITALS: BP 128/78; PULSE 67; RESP 16; TEMP 37.1; O2SAT 100
[2024-05-07 21:20] VITALS: BP 132/78
[2024-05-07] MEDS: Prazosin HCL 1 MG CAPSULE PO (21:20)
[2024-05-07] MEDS: traZODone HCL 50 MG TABLET PO (21:22)
[2024-05-08 07:30] VITALS: BP 114/65; PULSE 97; RESP 14; TEMP 37.2; O2SAT 98
[2024-05-08] MEDS: Lithium Carbonate ER 300 MG TABLET.ER PO ×2 (08:58→21:31)
--- NOTE | 2024-05-08 09:02 | P.PNPSI_ITS ---
Subjective Subjective Date of Service: 05/08/24 Reason For Visit: crisis Subjective Notes: Conditional Voluntary Interim History: Active on unit, social with peers. attending groups. Patient reports feels her mood getting better ; pt stated, I feel like my depression is getting less. I haven't had suicidal thoughts for the first time in my life . denies SI/HI/VH/AH. If continues to improve, plan for discharge on Wednesday;pt aware. Medication Compliance: Yes Side effects from medications: No Attending Groups: Yes Review of Systems Constitutional: Reports as per HPI Eyes: Reports as per HPI Reports as per HPI Cardiovascular: Reports as per HPI Respiratory: Reports as per HPI Gastrointestinal: Reports as per HPI Genitourinary: Reports as per HPI Musculoskeletal: Reports as per HPI Skin/Breast: Reports as per HPI Reports as per HPI Psychiatric: Reports as per HPI Endocrine: Reports as per HPI Hematologic/Lymphatic: Reports as per HPI Allergic/Immunologic: Reports as per HPI Mental Status Exam Mental Status Exam Narrative: Pt is alert and oriented; behavior is cooperative, friendly and calm; dressed in casual attire; mood is described as better ; eye contact appropriate; Speech is normal rate, volume and not pressured; thought process is organized; Thought content is on tx; otherwise pertinent to relevant topics and without any delusional content, paranoid ideations or grandiosity; denies SI/HI/VH/AH. Diagnostics Vital Signs (24Hr): Vital Signs - 24 hr 05/07/24 19:49 05/07/24 21:20 05/08/24 07:30 Temperature 98.7 F 98.9 F Pulse Rate 67 97 Respiratory Rate 16 14 Blood Pressure 128/78 132/78 114/65 Pulse Oximetry 100 98 Oxygen Delivery Method Room Air Room Air BMI result Body Mass Index 21.1 Labs 04/30/24 19:14 05/02/24 19:38 Medications Medications Current Medications Acetaminophen (Acetaminophen 325 Mg Tablet) 650 mg PO Q6H PRN PRN Reason: Headache/Pain Mild Scale (1-3) Al Hydroxide/Mg Hydroxide (Magnesium Hydrox/Alum Hydrox 30 Ml Oral.Susp) 30 ml PO Q6H PRN PRN Reason: Heartburn/Nausea Bisacodyl (Bisacodyl 5 Mg Tablet.Dr) 10 mg PO BEDTIME PRN PRN Reason: Constipation Hydroxyzine HCl (Hydroxyzine Hcl 25 Mg Tablet) 25 mg PO Q6H PRN PRN Reason: Anxiety Ibuprofen (Ibuprofen 400 Mg Tablet) 400 mg PO TID PRN PRN Reason: Pain, Moderate(Pain Scale 4-6) [place] Carbonate ([place] Carbonate Er 300 Mg Tablet.Er) 300 mg PO BID [facility] Last Admin: 05/08/24 08:58 Dose: 300 mg Magnesium Hydroxide (Milk Of Magnesia 30 Ml Oral.Susp) 30 ml PO DAILY PRN PRN Reason: Constipation Last Admin: 05/04/24 09:14 Dose: 30 ml Nicotine (Nicotine 21 Mg Patch.Td24) 21 mg TRANSDERMA DAILY [facility] Last Admin: 05/08/24 08:59 Dose: Not Given Nicotine Polacrilex (Nicotine Polacrilex 2 Mg Gum) 4 mg BUCCAL Q2H PRN PRN Reason: Nicotine Cravings Olanzapine (Olanzapine 5 Mg Tablet) 5 mg PO Q4H PRN PRN Reason: agitation Polyethylene Glycol (Polyethylene Glycol 3350 17 Gm Powd.Pack) 17 gm PO DAILY PRN PRN Reason: Constipation Last Admin: 05/07/24 12:07 Dose: 17 gm Prazosin HCl (Prazosin Hcl 1 Mg Capsule) 1 mg PO BEDTIME [facility]; Protocol Last Admin: 05/07/24 21:20 Dose: 1 mg Trazodone HCl (Trazodone Hcl 50 Mg Tablet) 50 mg PO BEDTIME MRX1 PRN PRN Reason: Insomnia Last Admin: 05/07/24 21:22 Dose: 50 mg Allergies Allergies Allergy/AdvReac Type Severity Reaction Status Date / Time No Known Allergies Allergy Verified 04/30/24 18:20 Assessment & Plan Assessment & Plan (1) Bipolar 1 disorder, depressed: Status: Acute Code(s): F31.9 - Bipolar disorder, unspecified (2) PTSD (post-traumatic stress disorder): Status: Acute Code(s): F43.10 - Post-traumatic stress disorder, unspecified Plan Patient is a 23-year-old female with history of bipolar d/o and PTSD who self presented to ED requesting psychiatric evaluation due to suicidal ideation secondary to increased depression. Plan: CV 15 minute safety checks obtain collateral Start: [place] ER 300mg PO bedtime Prazosin 1mg PO bedtime encourage groups referral to outpatient psychiatric prescriber referral to [facility] discharge planning 05/04: Active on unit, social with peers. attending groups. Patient reports she feels her anxiety and depression are a little better ; pt stated, I think I feel a little better because I know I'm getting the help I need. I haven't had thoughts of suicide since I'm getting treatment but I know if I was to go back to where I was then I would . Patient reports feeling labile throughout the day. denies any side effects from starting lithium. Reports she did not have nightmares last night after taking Prazosin. Continue current tx plan. 05/05: Tearful during 1:1. Patient reports feeling anxious and depression today; pt stated, I would like to go to college and get a job but when I think about it I get overwhelmed. I can't afford going to college . attending groups. increase lithium to 300mg PO BID 05/06 continue tx 05/07 continue tx. 05/08: Active on unit, social with peers. attending groups. Patient reports feels her mood getting better ; pt stated, I feel like my depression is getting less. I haven't had suicidal thoughts for the first time in my life . denies SI/HI/VH/AH. If continues to improve, plan for discharge on Wednesday;pt aware. Patient educated on: diagnosis and medication risk/benefits Reason for continued inpatient stay Substantial Risk for: med/psych decompensation Time Spent With Patient Time: Total time managing care of this patient today _20___ minutes.
[2024-05-08] MEDS: OLANZapine 5 MG TABLET PO (09:03)
[2024-05-08 19:50] VITALS: BP 120/78; PULSE 79; RESP 16; TEMP 37.4; O2SAT 99
[2024-05-08 21:31] VITALS: BP 118/68
[2024-05-08] MEDS: Prazosin HCL 1 MG CAPSULE PO (21:31)
[2024-05-08] MEDS: traZODone HCL 50 MG TABLET PO (21:32)
[2024-05-09 08:00] VITALS: BP 123/77; PULSE 90; RESP 14; TEMP 36.6; O2SAT 98
[2024-05-09] MEDS: Lithium Carbonate ER 300 MG TABLET.ER PO ×2 (08:36→21:57)
--- NOTE | 2024-05-09 09:39 | P.PNPSI_ITS ---
Subjective Subjective Date of Service: 05/09/24 Reason For Visit: crisis Subjective Notes: Conditional Voluntary Interim History: Active on unit, social with peers. attending groups. Patient reports feeling good and looking forward to discharging tomorrow. pt stated, I'm feeling better than when I got here and I'm no longer thinking about suicide . denies SI/HI/VH/AH. [place] level to be drawn today. plan for discharge home tomorrow. Medication Compliance: Yes Side effects from medications: No Attending Groups: Yes Review of Systems Constitutional: Reports as per HPI Eyes: Reports as per HPI Reports as per HPI Cardiovascular: Reports as per HPI Respiratory: Reports as per HPI Gastrointestinal: Reports as per HPI Musculoskeletal: Reports as per HPI Skin/Breast: Reports as per HPI Reports as per HPI Psychiatric: Reports as per HPI Endocrine: Reports as per HPI Hematologic/Lymphatic: Reports as per HPI Allergic/Immunologic: Reports as per HPI Mental Status Exam Mental Status Exam Narrative: Pt is alert and oriented; behavior is cooperative, friendly and calm; dressed in casual attire; mood is described as good ; eye contact appropriate; Speech is normal rate, volume and not pressured; thought process is organized; Thought content is on tx; otherwise pertinent to relevant topics and without any delusional content, paranoid ideations or grandiosity; denies SI/HI/VH/AH. Diagnostics Vital Signs (24Hr): Vital Signs - 24 hr 05/08/24 19:50 05/08/24 21:31 05/09/24 08:00 Temperature 99.3 F 97.8 F Pulse Rate 79 90 Respiratory Rate 16 14 Blood Pressure 120/78 118/68 123/77 Pulse Oximetry 99 98 Oxygen Delivery Method Room Air Room Air BMI result Body Mass Index 21.1 Labs 04/30/24 19:14 05/02/24 19:38 Medications Medications Current Medications Acetaminophen (Acetaminophen 325 Mg Tablet) 650 mg PO Q6H PRN PRN Reason: Headache/Pain Mild Scale (1-3) Al Hydroxide/Mg Hydroxide (Magnesium Hydrox/Alum Hydrox 30 Ml Oral.Susp) 30 ml PO Q6H PRN PRN Reason: Heartburn/Nausea Bisacodyl (Bisacodyl 5 Mg Tablet.Dr) 10 mg PO BEDTIME PRN PRN Reason: Constipation Clonidine HCl (Clonidine Hcl 0.1 Mg Tablet) 0.1 mg PO BID PRN; Protocol PRN Reason: Anxiety Hydroxyzine HCl (Hydroxyzine Hcl 25 Mg Tablet) 25 mg PO Q6H PRN PRN Reason: Anxiety Ibuprofen (Ibuprofen 400 Mg Tablet) 400 mg PO TID PRN PRN Reason: Pain, Moderate(Pain Scale 4-6) [place] Carbonate ([place] Carbonate Er 300 Mg Tablet.Er) 300 mg PO BID KARISHMA Last Admin: 05/09/24 08:36 Dose: 300 mg Magnesium Hydroxide (Milk Of Magnesia 30 Ml Oral.Susp) 30 ml PO DAILY PRN PRN Reason: Constipation Last Admin: 05/04/24 09:14 Dose: 30 ml Nicotine Polacrilex (Nicotine Polacrilex 2 Mg Gum) 4 mg BUCCAL Q2H PRN PRN Reason: Nicotine Cravings Olanzapine (Olanzapine 5 Mg Tablet) 5 mg PO Q4H PRN PRN Reason: agitation Last Admin: 05/08/24 09:03 Dose: 5 mg Polyethylene Glycol (Polyethylene Glycol 3350 17 Gm Powd.Pack) 17 gm PO DAILY PRN PRN Reason: Constipation Last Admin: 05/07/24 12:07 Dose: 17 gm Prazosin HCl (Prazosin Hcl 1 Mg Capsule) 1 mg PO BEDTIME KARISHMA; Protocol Last Admin: 05/08/24 21:31 Dose: 1 mg Trazodone HCl (Trazodone Hcl 50 Mg Tablet) 50 mg PO BEDTIME MRX1 PRN PRN Reason: Insomnia Last Admin: 05/08/24 21:32 Dose: 50 mg Allergies Allergies Allergy/AdvReac Type Severity Reaction Status Date / Time No Known Allergies Allergy Verified 04/30/24 18:20 Assessment & Plan Assessment & Plan (1) Bipolar 1 disorder, depressed: Status: Acute Code(s): F31.9 - Bipolar disorder, unspecified (2) PTSD (post-traumatic stress disorder): Status: Acute Code(s): F43.10 - Post-traumatic stress disorder, unspecified Plan Patient is a 23-year-old female with history of bipolar d/o and PTSD who self presented to ED requesting psychiatric evaluation due to suicidal ideation secondary to increased depression. Plan: CV 15 minute safety checks obtain collateral Start: [place] ER 300mg PO bedtime Prazosin 1mg PO bedtime encourage groups referral to outpatient psychiatric prescriber referral to [facility] discharge planning 05/04: Active on unit, social with peers. attending groups. Patient reports she feels her anxiety and depression are a little better ; pt stated, I think I feel a little better because I know I'm getting the help I need. I haven't had thoughts of suicide since I'm getting treatment but I know if I was to go back to where I was then I would . Patient reports feeling labile throughout the day. denies any side effects from starting lithium. Reports she did not have nightmares last night after taking Prazosin. Continue current tx plan. 05/05: Tearful during 1:1. Patient reports feeling anxious and depression today; pt stated, I would like to go to college and get a job but when I think about it I get overwhelmed. I can't afford going to college . attending groups. increase lithium to 300mg PO BID 05/06 continue tx 05/07 continue tx. 05/08: Active on unit, social with peers. attending groups. Patient reports feels her mood getting better ; pt stated, I feel like my depression is getting less. I haven't had suicidal thoughts for the first time in my life . denies SI/HI/VH/AH. If continues to improve, plan for discharge on Wednesday;pt aware. 05/09: Active on unit, social with peers. attending groups. Patient reports feeling good and looking forward to discharging tomorrow. pt stated, I'm feeling better than when I got here and I'm no longer thinking about suicide . denies SI/HI/VH/AH. [place] level to be drawn today. plan for discharge home tomorrow. Patient educated on: diagnosis and medication risk/benefits Reason for continued inpatient stay Substantial Risk for: stable for discharge Time Spent With Patient Time: Total time managing care of this patient today _20___ minutes.
[2024-05-09 17:27] LABS: Lithium 0.42 mmol/L (0.60-1.20)
[2024-05-09 17:40] LABS: Anion Gap 6 (12-20); Blood Urea Nitrogen 14 mg/dL (9-16); Carbon Dioxide 28 mmol/L (22-29); Chloride 107 mmol/L (96-108); Creatinine Clr Calc Pharmacy 105.7; Estimated Glomerular Filt Rate > 60; Potassium 3.9 mmol/L (3.3-5.1); Sodium 137 mmol/L (135-145)
[2024-05-09 17:56] LABS: TSH reflex Free T4 8.23 uIU/mL (0.32-4.0)
[2024-05-09 18:47] LABS: Free T4 (Free Thyroxine) 0.88 ng/dL (0.71-1.85)
[2024-05-09 21:56] VITALS: BP 120/80; PULSE 71; RESP 16; TEMP 36.9; O2SAT 98
[2024-05-09] MEDS: traZODone HCL 50 MG TABLET PO (21:57)
[2024-05-09] MEDS: Prazosin HCL 1 MG CAPSULE PO (21:58)
[2024-05-10 07:32] VITALS: BP 113/68; PULSE 83; RESP 16; TEMP 36.8; O2SAT 96
[2024-05-10] MEDS: Lithium Carbonate ER 300 MG TABLET.ER PO (08:57)
--- NOTE | 2024-05-10 09:31 | P.DS_ITS ---
DS: Providers Provider Date of Service: 05/10/24 Date of admission: 05/02/24 16:56 Date of discharge: 05/10/24 Primary care physician: Fern Nielson PA-C Admitting clinician: Amira Teixeira Attending physician on admission: Jesus Aviles Attending physician on discharge: Justin Mcclain Discharging clinician: Amira Teixeira DS: Diagnosis Discharge Diagnosis (1) Bipolar 1 disorder, depressed: Status: Acute (2) PTSD (post-traumatic stress disorder): Status: Acute DS: Medications Discharge Medications Home Medications: Previous Rx's ?Medication ?Instructions ?Recorded lithium carbonate 300 mg 300 mg PO BID 30 days #60 tabs 05/10/24 tablet,extended release prazosin 1 mg capsule 1 mg PO BEDTIME 30 days #30 caps 05/10/24 Mental Status Exam Mental Status Exam Narrative: Pt is alert and oriented; behavior is cooperative, friendly and calm; dressed in casual attire; mood is described as good ; eye contact appropriate; Speech is normal rate, volume and not pressured; thought process is organized; Thought content is on tx; otherwise pertinent to relevant topics and without any delusional content, paranoid ideations or grandiosity; denies SI/HI/VH/AH. Data Data Completed and Pending Completed studies during hospitalization [Text1]: 05/04/24 05/09/24 07:51 17:09 Sodium 137 Potassium 3.9 Chloride 107 Carbon Dioxide 28 Anion Gap 6 L BUN 14 Creatinine 0.80 Estim Creat Clear Calc 105.7 Estimated GFR > 60 Triglycerides 93 Cholesterol 128 LDL Cholesterol, Calc 56 HDL Cholesterol 54 TSH 8.23 H Free T4 0.88 [place] 0.42 L DS: Summary Hospital Course Hospital Course: Patient is a 23-year-old female with history of bipolar d/o and PTSD who self presented to ED requesting psychiatric evaluation due to suicidal ideation secondary to increased depression. Per crisis report, patient feels like she is not in touch with reality. She endorsed SI with increased depression with plan to shoot herself (does not have access to firearms); patient stated, fantasized about suicide all the everyday . denies HI/VH/AH. Patient reports she has never been medicated properly. Patient reports she was on inpatient psychiatric unit 2 years ago at [facility]. Reports poor sleep. Patient does have outpatient therapist but does not have prescriber and reports she has not taken medications in many years. Utox positive for cannabis. During admission assessment, patient presents alert and oriented x3. Calm and cooperative. Patient reports feeling depressed; patient stated, I have been unmedicated my whole life. I need help being a normal person. I was diagnosed with bipolar disorder. I'm crying all the time and angry all the time. I think about suicide since I was a kid but, I was worried if I told anyone that they would lock me up forever. I'm not a danger to myself; it's a constant racing thought. I would not actually do it . denies HI/VH/AH. denies hx of SA/SIB. She reports poor sleep and nightmares. Discussed starting on lithium and prazosin;risks/benefits reviewed; pt agreed to trial. Plan: CV 15 minute safety checks obtain collateral Start: [place] ER 300mg PO bedtime Prazosin 1mg PO bedtime encourage groups referral to outpatient psychiatric prescriber referral to [facility] discharge planning Active on unit, social with peers. attending groups. Patient reports she feels her anxiety and depression are a little better ; pt stated, I think I feel a little better because I know I'm getting the help I need. I haven't had thoughts of suicide since I'm getting treatment but I know if I was to go back to where I was then I would . Patient reports feeling labile throughout the day. denies any side effects from starting lithium. Reports she did not have nightmares last night after taking Prazosin. Continue current tx plan. 05/05: Tearful during 1:1. Patient reports feeling anxious and depression today; pt stated, I would like to go to college and get a job but when I think about it I get overwhelmed. I can't afford going to college . attending groups. increase lithium to 300mg PO BID Active on unit, social with peers. attending groups. Patient reports feels her mood getting better ; pt stated, I feel like my depression is getting less. I haven't had suicidal thoughts for the first time in my life . denies SI/HI/VH/AH. If continues to improve, plan for discharge on Wednesday;pt aware. Active on unit, social with peers. attending groups. Patient reports feeling good and looking forward to discharging tomorrow. pt stated, I'm feeling better than when I got here and I'm no longer thinking about suicide . denies SI/HI/VH/AH. [place] level to be drawn today. plan for discharge home tomorrow. Patient reports feeling ready to go ; plans on following up with [facility] and her outpatient providers. [place] level 0.42 on 05/10/24. denies SI/HI/VH/AH. Status at Discharge Cognitive/behavioral status at discharge: Patient has insight and demonstrates good judgment in terms of wanting to pursue treatment. Patient is not in imminent risk of harm to self or others and has a safety plan that includes presenting to the closest ER or calling 911 if feeling unsafe. Functional status at discharge: independent ambulation Overall status at discharge: patient is back to baseline Time Spent with Patient Time attestation: Total time managing care of this patient today _20___ minutes. Time spent: Less than 30 minutes Discharge Plan Discharge Anticipated Discharge Date/Time: 05/10/24 11:00 Patient Disposition: Home, Self-Care Discharge Diagnosis: Bipolar d/o, PTSD Referrals: [facility] Intake [Other] - 06/05/24 8:00 am (Intake appointment- in person) Fern Nielson PA-C [Primary Care Provider] - 1 Week (Your primary care provider has been contacted to schedule your follow up appt within 7-10 days. They will contact you directly with the date and time.) Discharge Medications: New prazosin 1 mg Capsule 1 mg PO BEDTIME 30 Days Qty: 30 0RF Protocol: Hold for SBP< HOLD for SBP < : 90 lithium carbonate 300 mg Tablet Extended Release 300 mg PO BID 30 Days Qty: 60 0RF Discharge Orders: Discharge Order (Routine); Ordered 05/10/24 Ordered By: Amira Teixeira Diet: Regular diet Activity on Discharge: As tolerated Stand Alone Forms: Patient Portal Discharge page, Community Support Print Language: Pashto Care Plan Goals: Maintain mood and safe behaviors Take medications as prescribed Practice coping skills Continue with outpatient providers and reach out to them as needed Health Concerns: Mood stability and behaviors Follow up with PCP regarding TSH labs. Plan of Treatment: Follow up with your PCP, psychiatric provider and other outpatient providers regarding above concerns Take medications as prescribed Assessment: Patient has insight and demonstrates good judgment in terms of wanting to pursue treatment. Patient is not in imminent risk of harm to self or others and has a safety plan that includes presenting to the closest ER or calling 911 if feeling unsafe. Patient Instructions: Lymphadenopathy (ED), Suicide Prevention (ED) Discharge Date/Time: 05/10/24 10:47
== END 2024-05-10 10:47 | disposition home or self-care (01) | DRG 885 ==
LOC: HO.ED 05-01 10:57 → HO.PADLT16 05-02 17:11
PROVIDERS: Physician Assistant; Admitting Provider Registered Nurse; Emergency Provider Emergency Medicine Emergency Medical Services; PCP Physician Assistant; Responsible Provider Registered Nurse; Visit Provider Psychiatry & Neurology Psychiatry
DX: F31.9 Bipolar disorder, unspecified (principal); R45.851 Suicidal ideations; F17.210 Nicotine dependence, cigarettes, uncomplicated; F43.10 Post-traumatic stress disorder, unspecified; Z71.6 Tobacco abuse counseling; Z23 Encounter for immunization; Z79.899 Other long term (current) drug therapy
CPT/HCPCS: 0241U; 36415; 80051; 80053; 80061; 80178; 80179; 80307; 82565; 84439; 84443; 84520; 84702; 85025; 86308; 87651; 90656; 99285

== ENCOUNTER → 2024-05-02 16:56 | Outpatient (BNV) | payer OTHER, SELFPAY | PROVIDERS: Admitting Provider Registered Nurse; Emergency Provider Emergency Medicine Emergency Medical Services; PCP Physician Assistant; Responsible Provider Registered Nurse; Visit Provider Registered Nurse | DX: F31.9 Bipolar disorder, unspecified (principal); F43.10 Post-traumatic stress disorder, unspecified | CPT/HCPCS: 90792 ==

== ENCOUNTER 2024-05-17 15:27 | Outpatient (REF) | payer OTHER, SELFPAY ==
[2024-05-18 15:42] LABS: Adenovirus PCR Not Detected (Not Detect.); Bordetella parapertussis PCR Not Detected (Not Detect.); Bordetella pertussis PCR Not Detected (Not Detect.); Chlamydia pneumoniae PCR Not Detected (Not Detect.); Coronavirus 229E PCR Not Detected (Not Detect.); Coronavirus HKU1 PCR Not Detected (Not Detect.); Coronavirus NL63 PCR Not Detected (Not Detect.); Coronavirus OC43 PCR Not Detected (Not Detect.); Human metapneumovirus PCR Not Detected (Not Detect.); Influenza A PCR Not Detected (Not Detect.); Influenza B PCR Not Detected (Not Detect.); Mycoplasma pneumoniae PCR Not Detected (Not Detect.); Parainfluenza 1 PCR Not Detected (Not Detect.); Parainfluenza 2 PCR Not Detected (Not Detect.); Parainfluenza 3 PCR Not Detected (Not Detect.); Parainfluenza 4 PCR Not Detected (Not Detect.); RSV PCR Detected (Not Detect.); Rhino/Enterovirus PCR Not Detected (Not Detect.)
[2024-05-18 16:13] LABS: SARS-CoV-2 PCR Not Detected (Not Detect.)
== END 2024-05-17 15:28 | disposition home or self-care (01) ==
LOC: HO.LAB 15:27
PROVIDERS: Physician Assistant; PCP Physician Assistant
DX: J06.9 Acute upper respiratory infection, unspecified (principal); H66.001 Acute suppurative otitis media without spontaneous rupture of ear drum, right ear
CPT/HCPCS: 87633; 87880

== ENCOUNTER 2024-05-17 15:27 | Outpatient (AMB) | payer OTHER, SELFPAY ==
--- NOTE | 2024-05-17 15:32 | AM.OFFWIN_ITS ---
Intake Vital Signs 05/17/24 15:37 Weight 141 lb BP 110/78 Blood Pressure Location Rt brachial Position Sitting Pulse 74 Pulse Source Pulse Oximeter Temp 99.1 F Temp Source Oral Pulse Oximetry (%) 98 Oxygen Delivery Method Room Air Intake Visit Reasons: EP trouble hearing in rt ear, sore throat Intake Note: Patient here for trouble hearing, swollen glands and was seen at [facility] ED about 1 week ago. Patient Tobacco Use Status: Current everyday Tobacco user Allergies No Known Allergies Allergy (Verified 05/17/24 15:37) Do you need a note to return to daycare/school/sports/work: No HPI HPI Comments History of Present Illness Details History - The patient is a 23-year-old female pr esenting with worsening left sided heari ng reduction and discomfort. - She reports worsening symptoms related to a viral infection. Went to [facility] ED on 04/30 was told viral infection but all testing was negative. - The patient reports existing hypothyro idism symptoms yet remains untreated, experiencing significant fatigue, mental health impacts, and unusual weight gain. - Severe allergic symptoms are present, as per her baseline. - She experienced increased asthma-relat ed symptoms but managed them with an inhaler, with relief of symptoms. - No recent febrile episodes but complai nts of productive cough and phlegm accumulation are noted. - Was seen in the ED 04/30, from that note ... 23-year-old female presents for evaluation of a swollen glands. She denies any sore throat. She endorses chills but no fevers. Denies any cough, respiratory symptoms. Her labs are unremarkable, she is negative for influenza, COVID-19, RSV, strep pharyngitis, mononucleosis. TSH elevated, free T4 normal. This is nonspecific, possibly viral in origin Physical Exam General: Cooperative, healthy appearing, comfortable and no acute distress Orientation/consciousness: Patient oriented x3 Limitations: No limitations Head: Normal to inspection Ears: External ears normal, bulging and erythematous right TM with purulent effusion, cerumen noted , left TM normal. Nose: Normal external nose present, Normal nares present and No nasal discharge present Face and sinus: Normal facial exam and Yes sinuses nontender Mouth: Normal oral and palatal mucosa present and moist mucous membranes Throat: Tonsils inflamed, Yes uvula midline. Posterior oropharynx erythema, no exudates noted Eyes: Appearance normal, both eyes and all related structures Neck: Normal visual inspection Respiratory: Clear to auscultation bilaterally. Normal respiratory effort, able to speak in complete sentences, Actively coughing, no respiratory distress, not tachypneic, no tripod positioning and no use of accessory muscles Cardiovascular: Regular rate and rhythm. Normal S1 and S2 Skin: No rashes or lesions noted Neuro: Patient oriented x3 Extremities: Normal to inspection and Yes no clubbing, cyanosis or edema PFSH Social History Household Members: Family Housing: House Do you presently have visiting nurse or other home services: No Patient Tobacco Use Status: Current everyday Tobacco user Years Smoked: 3-4 YEARS e-Cigarette/Vaping Use: Currently Using Second Hand Smoke Exposure: No Substance Use Type: Marijuana service: No Sexual orientation: Decline to Answer Review of Systems Const All systems reviewed & are unremarkable except as noted in HPI and below Physical Exam Vital Signs: Last Vital Signs Temp 99.1 F 05/17/24 15:37 Pulse 74 05/17/24 15:37 BP 110/78 05/17/24 15:37 Pulse Ox 98 05/17/24 15:37 Oxygen Delivery Method Room Air 05/17/24 15:37 Results AMB Rapid Strep AMB Rapid Strep Negative Last Edit by JADA Finley on 05/17/24 16:01 Assessment & Plan Assessment & Plan (1) Otitis media: Code(s): H66.90 - Otitis media, unspecified, unspecified ear Qualifiers: Otitis media type: suppurative Chronicity: acute Laterality: right Recurrence: non-recurrent Spontaneous tympanic membrane rupture: without spontaneous rupture Qualified Code(s): H66.001 - Acute suppurative otitis media without spontaneous rupture of ear drum, right ear Plan: VSS, pt well appearing, rapid strep negative. The treatment focus is on resolving the acute otitis media with an antibiotic regimen of Augmentin, addressing suspected bacterial implications of upper resp tract due to prolonged symptoms and neg viral panel on 04/30. Ear irrigation is deferred until infection resolution to avoid exacerbating discomfort. A thorough viral panel has been initiated for broader viral diagnostics, including atypical pathogen testing. The patient's asthma management remains with the inhaler, with no initiation of systemic steroids like prednisone due to clear pulmonary examination. Continued observation is advised regarding hypothyroid symptoms, with reference to a primary care follow-up for further exploration of thyroid function in the context of recent illness. Attention to the elevated eosinophil count suggests possible increased allergic responses. The patient has been informed of medication effects and compliance remains critical for treatment success. Patient was informed and verbally consented to the use of an ambient scribe for clinic note documentation during this visit (2) URI, acute: Code(s): J06.9 - Acute upper respiratory infection, unspecified Plan: as above Orders: Orders AMB Rapid Strep Screen Today Z13.9 - Encounter for screening, unspecified Resp Pathogen Panel - [facility] Today J06.9 - Acute upper respiratory infection, unspecified Medications: New amoxicillin-pot clavulanate 875-125 mg 1 tab PO Q12H 14 tabs 0RF Coding Level of Care Code New Pt Level 3 (74485) Diagnoses Non-recurrent acute suppurative otitis media of right ear without spontaneous rupture of tympanic membrane H66.001 Otitis media type: suppurative Chronicity: acute Laterality: right Recurrence: non-recurrent Spontaneous tympanic membrane rupture: without spontaneous rupture URI, acute J06.9
[2024-05-17 15:37] VITALS: BP 110/78; PULSE 74; TEMP 37.3; O2SAT 98
== END 2024-05-17 16:13 | disposition home or self-care (01) ==
PROVIDERS: PCP Physician Assistant; Visit Provider Physician Assistant
DX: H66.001 Acute suppurative otitis media without spontaneous rupture of ear drum, right ear (principal); J06.9 Acute upper respiratory infection, unspecified; Z13.9 Encounter for screening, unspecified

== ENCOUNTER 2024-06-08 12:00 | Outpatient (RCR) | payer OTHER, SELFPAY ==
[2024-06-07 09:34] VITALS: BMI 21.8
[2024-06-07 09:35] VITALS: BP 121/80; PULSE 82; TEMP 37.4
--- NOTE | 2024-06-07 13:15 | PC.ADMIT ---
Patient is a 23 year old single female who was referred to [facility] by [facility] inpatient behavioral health unit where she was admitted from 05/02/24-05/10/24 secondary to increased depression with SI. Patient has a history of bipolar disorder and reports having one other previous hospitalization. Patient reportedly self presented to [facility] ER with her adoptive father. Patient reports prior to hospitalization she had thoughts to kill herself daily and throughout the day. Stated she was having these thoughts for months before she sought help. Reports she has no day structure and feels stuck in her life. She reports she was spending most of her days in bed. Stated at the times she fantasized about suicide however she reports she did not want to kill herself. Since hospitalization patient stated she has not had any SI in a while. [place] hospitalization was helpful and feels the medications are helpful. Patient reports her adopted dad whom she lives with is very supportive. Patient reports she was smoking marijuana every night and would use it to do things like art and drawing. She stated she decided since she is in the [facility] program she is not going to use marijuana. Patient is alert and oriented x4. She is calm and cooperative. She presented with anxious mood and affect. She denied SI, no HI. She was given a copy of her safety plan if needed. Medications reconciled from [facility] inpatient unit d/c records and per patient. Patient reports she has been taking her medications as prescribed.
--- NOTE | 2024-06-08 16:10 | HO.PHP ---
Client's case has been opened and reviewed in teams.
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
--- NOTE | 2024-06-09 08:16 | HO.PHP ---
PHP Admin, Katherine, informed the team that Christina will not be in attendance to program today due to being exhausted. Christina reported no safety concerns and will be here on Wednesday.
--- NOTE | 2024-06-14 15:25 | HO.PHP ---
Christina was contacted at home today, was not able to get [facility] but reports she has started the process. Pt currently has lost her health insurance through her legal guardian. Reports he left his job so she has since been dropped and she is working to apply for [facility]. (pt was provided the phone number for the financial assistance dept at [facility]). Pt states she does not have an OP med provider so would like to return when she has approved health insurance. Pt added she currently is in the process of getting a new social security number which is making it difficult to apply for [facility], states she need a signed medical records document as one of her forms of identification for the Social Security office, therefore pt would like to come in tomorrow to diamond picker her signed discharge paperwork from Dr. Meadows tomorrow.
--- NOTE | 2024-06-15 21:26 | P.EN_ITS ---
Event Note Date of Service: 06/15/24 Event Note: Met with patient who came into program to review medications and sign discharge paperwork. She was accompanied by her adoptive father who lost his insurance so patient is unable to continue in the program until he starts new job/insurance (which, he says, could be in next 2-4 weeks). Met with patient and stepfather for 15 min and with patient alone for 30 min. Patient reports feeling significantly more stable since starting Abilify even though dose has remained at 1 mg. Will still plan to cross titrate onto ABilify and taper off lithium especially given thyroid dysfunction (TSH>8), and reporting s/s of hypothyroidism. On physical examination she has a large nonnodular goiter which is visibly noticeable. Will recheck labs once insurance instated, she plans to call Katherine to get back on list for PHP. In the meantime, she has no MH providers. She discussed trying to get on [facility] but having difficulty obtaining her SSN. She agrees to reach out to [facility] to see if they can get her connected or at least on a wait list. We discussed situation at home, patient reports being safe and expresses ALso codependency Time Spent With Patient Time: Total time managing care of this patient today __30__ minutes.
== END 2024-06-08 23:59 | disposition home or self-care (01) ==
LOC: HO.PHPA 12:00
PROVIDERS: Visit Provider Psychiatry & Neurology Psychiatry
DX: F31.9 Bipolar disorder, unspecified (principal); F43.9 Reaction to severe stress, unspecified; F12.90 Cannabis use, unspecified, uncomplicated
CPT/HCPCS: 90791; 90853

== ENCOUNTER → 2024-06-08 12:00 | Outpatient (BNV) | payer OTHER, SELFPAY | PROVIDERS: Visit Provider Psychiatry & Neurology Psychiatry | DX: F31.9 Bipolar disorder, unspecified (principal); F12.90 Cannabis use, unspecified, uncomplicated; F43.9 Reaction to severe stress, unspecified | CPT/HCPCS: 90792 ==